=== PATIENT | male | born 1980 | race Hispanic/Latino ===

== ENCOUNTER 2018-07-18 12:05 | Emergency (ER) | payer SELFPAY ==
[2018-07-18 12:46] LABS: Arterial Blood Carboxyhemoglob 0.7 % (0-1.5); Blood O2 Saturation 95.6 % (92-98.5)
[2018-07-18] MEDS ORDERED: ALBUTEROL 2.5 MG/3 ML NEB SOL ONE (13:21)
[2018-07-18] MEDS ORDERED: IPRATROPIUM BROM 0.5MG/2.5ML ONE (13:22)
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
== END 2018-07-18 14:41 | disposition home or self-care (01) ==
LOC: ER 12:05
DX: R05 Cough (principal); T59.811A Toxic effect of smoke, accidental (unintentional), initial encounter; J70.5 Respiratory conditions due to smoke inhalation; Y92.89 Other specified places as the place of occurrence of the external cause
CPT/HCPCS: 71045; 82805; 94640; 99284